=== PATIENT | male | born 1995 | race Caucasian/White ===

== ENCOUNTER 2020-12-05 17:21 | Emergency (ER) | payer SELFPAY ==
[2020-12-05 17:38] VITALS: BP 118/71; PULSE 77; TEMP 98.2; BMI 30.9
[2020-12-05] MEDS ORDERED: DEXAMETHASONE SOD PHOSPHATE 10 MG/1 ML VIAL IM ONE (18:37)
[2020-12-05] MEDS ORDERED: DEXAMETHASONE SOD PHOSPHATE 10 MG/1 ML VIAL ONE (18:43)
== END 2020-12-05 19:44 | disposition home or self-care (01) ==
LOC: JERFT 17:21
PROC: 3E023NZ Introduction of Analgesics, Hypnotics, Sedatives into Muscle, Percutaneous Approach (ICD-10-PCS; principal; 2020-12-05)
PROC: 3E023GC Introduction of Other Therapeutic Substance into Muscle, Percutaneous Approach (ICD-10-PCS; 2020-12-05)
DX: L50.9 Urticaria, unspecified (principal); L23.9 Allergic contact dermatitis, unspecified cause
CPT/HCPCS: 99284-25; J1100

== ENCOUNTER 2023-09-17 15:30 | Emergency (ER) | payer OTHER ==
[2023-09-17 15:53] VITALS: BP 125/80; PULSE 56; RESP 18; TEMP 97; BMI 37.4
[2023-09-17] MEDS ORDERED: KETOROLAC TROMETHAMINE 30 MG/1 ML VIAL ONE (16:34)
[2023-09-17] MEDS: KETOROLAC TROMETHAMINE 30 MG/1 ML VIAL IM ONE (16:37)
== END 2023-09-17 16:47 | disposition home or self-care (01) ==
LOC: JERFT 15:30 → JER 15:30 → JERFT 16:47
PROC: 3E0233Z Introduction of Anti-inflammatory into Muscle, Percutaneous Approach (ICD-10-PCS; principal; 2023-09-17)
DX: M79.641 Pain in right hand (principal); M25.531 Pain in right wrist
CPT/HCPCS: 99284-25